=== PATIENT | male | born 1990 | race American Indian/Alaskan Native ===

== ENCOUNTER 2017-03-31 04:01 | Observation (INO) | payer MEDICAID, OTHER ==
[2017-03-31 05:55] LABS: BASO % 0.3 % (0.0-2.0); EOS # 0.2 K/uL (0.0-0.7); EOS % 1.9 % (0.0-4.0); HEMATOCRIT 43.1 % (35.0-51.0); LYMPH # 2.9 K/uL (1.0-4.3); LYMPH % 33.8 % (20.0-40.0); MEAN CELL VOLUME 97.8 fL (80.0-94.0); MEAN CORPUSCULAR HEMOGLOBIN 33.6 pg (27.0-31.0); MEAN CORPUSCULAR HGB CONC 34.3 g/dL (33.0-37.0); MEAN PLATELET VOLUME 8.8 fL (7.2-11.7); MONO # 0.6 K/uL (0.0-0.8); MONO % 6.7 % (0.0-10.0); NRBC % 0.1 % (0.0-2.0); RED CELL DISTRIBUTION WIDTH 13.6 % (11.5-14.5); WHITE BLOOD COUNT 8.4 K/uL (4.8-10.8)
[2017-03-31 06:11] LABS: URINE BILIRUBIN NEGATIVE (NEGATIVE); URINE COLOR YELLOW (YELLOW); URINE GLUCOSE (UA) NEGATIVE (Normal); URINE KETONE NEGATIVE (NEGATIVE)
[2017-03-31 06:12] LABS: RBC URINE 3 /hpf (0-3); URINE BLOOD TRACE (NEGATIVE); URINE LEUKOCYTE ESTERASE NEGATIVE Leu/uL (Negative); URINE PROTEIN NEGATIVE (NEGATIVE); URINE UROBILINOGEN 0.2 mg/dL (0.2-1.0); WBC URINE 1 /hpf (0-5)
[2017-03-31 06:21] LABS: CHLORIDE 105 mmol/L (98-107)
[2017-03-31 06:22] LABS: POTASSIUM 3.6 mmol/L (3.6-5.2); SODIUM 146 mmol/L (132-148)
[2017-03-31 06:24] LABS: ALB/GLOB RATIO 1.5 (1.0-2.1); ALKALINE PHOSPHATASE 56 U/L (38-126); ALT/SGPT 30 U/L (21-72); AST/SGOT 28 U/L (17-59); BILIRUBIN,TOTAL 0.8 mg/dL (0.2-1.3); BLOOD UREA NITROGEN 6 mg/dL (9-20); CARBON DIOXIDE 25 mmol/L (22-30); GFR AFRICAN-AMERICAN > 60; GLUCOSE,RANDOM 98 mg/dL (75-110); TOTAL PROTEIN 7.2 g/dL (6.3-8.3)
[2017-03-31 06:25] LABS: ALCOHOL SERUM 229 mg/dl (0-10); CALCIUM 9.1 mg/dl (8.6-10.4)
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
[2017-03-31 13:17] VITALS: O2SAT 99
[2017-03-31 17:48] VITALS: BP 105/55; PULSE 72; RESP 16; TEMP 98.5
== END 2017-03-31 17:50 | disposition home or self-care (01) ==
LOC: C.ER 04:01 → C.9OBSV 06:59
PROVIDERS: ADMIT Emergency Medicine; ATTEND Emergency Medicine
DX: F10.120 Alcohol abuse with intoxication, uncomplicated (principal); Y90.8 Blood alcohol level of 240 mg/100 ml or more; F22 Delusional disorders; F31.9 Bipolar disorder, unspecified
CPT/HCPCS: 80053; 80320; 80324; 80345; 80346; 80349; 80353; 80358; 80361; 81001; 83992; 85025; 96372; 99285; G0378; J1630; J2060

== ENCOUNTER 2017-07-11 18:53 | Emergency (ER) | payer MEDICAID, OTHER ==
[2017-07-11 18:55] VITALS: BMI 23.0
[2017-07-11 19:00] VITALS: BP 108/65; PULSE 98; RESP 18; TEMP 97; O2SAT 98
== END 2017-07-11 18:55 | disposition left against medical advice (07) ==
LOC: C.ER 18:53
DX: Z02.89 Encounter for other administrative examinations (principal); F19.10 Other psychoactive substance abuse, uncomplicated

== ENCOUNTER 2018-04-08 09:19 | Emergency (ER) | payer MEDICAID, OTHER ==
[2018-04-08 09:20] VITALS: BMI 23.0
[2018-04-08 09:35] VITALS: RESP 18; TEMP 98.8
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
[2018-04-08] MEDS ORDERED: Bacitracin 500 Units/gm Oint Foilpak UD TOP ONE (11:06)
[2018-04-08] MEDS ORDERED: Bacitracin 500 Units/gm Oint Foilpak UD ONE (11:11)
[2018-04-08 11:23] VITALS: BP 134/75; PULSE 90; O2SAT 95
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
== END 2018-04-08 11:23 | disposition home or self-care (01) ==
LOC: C.ER 09:19
DX: S63.91XA Sprain of unspecified part of right wrist and hand, initial encounter (principal); Y04.0XXA Assault by unarmed brawl or fight, initial encounter; Y92.9 Unspecified place or not applicable

== ENCOUNTER 2018-06-24 04:47 | Emergency (ER) | payer MEDICAID, OTHER ==
[2018-06-24 04:48] VITALS: BMI 23.0
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
[2018-06-24 05:09] VITALS: BP 156/78; PULSE 92; RESP 20; TEMP 98.2; O2SAT 98
== END 2018-06-24 05:10 | disposition home or self-care (01) ==
LOC: C.ER 04:47
DX: F10.129 Alcohol abuse with intoxication, unspecified (principal); F20.9 Schizophrenia, unspecified; F31.9 Bipolar disorder, unspecified

== ENCOUNTER 2018-07-28 20:34 | Emergency (ER) | payer OTHER ==
[2018-07-28 20:34] VITALS: BMI 23.0
[2018-07-28 21:13] VITALS: O2SAT 99
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
[2018-07-28 23:19] VITALS: BP 125/74; PULSE 99; RESP 16; TEMP 97.9
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
== END 2018-07-29 00:10 | disposition home or self-care (01) ==
LOC: C.ER 20:34
DX: S00.83XA Contusion of other part of head, initial encounter (principal); X58.XXXA Exposure to other specified factors, initial encounter; F10.10 Alcohol abuse, uncomplicated; F20.9 Schizophrenia, unspecified

== ENCOUNTER 2018-08-09 09:27 | Emergency (ER) | payer SELFPAY ==
[2018-08-09 09:34] VITALS: BMI 25.8
[2018-08-09 09:36] VITALS: BP 124/73; PULSE 70; RESP 18; TEMP 98.7; O2SAT 98
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
== END 2018-08-09 10:30 | disposition home or self-care (01) ==
LOC: C.ER 09:27
DX: L90.5 Scar conditions and fibrosis of skin (principal); F20.9 Schizophrenia, unspecified

== ENCOUNTER 2018-09-11 15:47 | Emergency (ER) | payer OTHER | END 2018-09-12 01:27 | disposition home or self-care (01) | LOC: C.ER 09-12 01:27 ==